=== PATIENT | female | born 1965 | race American Indian/Alaskan Native ===

== ENCOUNTER 2022-07-01 12:45 | Emergency (ER) | payer MEDICARE, MEDICAID ==
[2022-07-01 13:18] VITALS: PULSE 90
[2022-07-01] MEDS ORDERED: Sodium Chloride 0.9% 10 ML Syringe FLUSH PRN (13:23)
[2022-07-01] MEDS ORDERED: cefTRIAXone 2 GM in Sodium Chloride 0.9% 50 ML IV ONE (13:24)
[2022-07-01 13:38] LABS: BASOPHILS ABSOLUTE AUTO 0.05 K/uL (0.00-0.10); BASOPHILS PERCENT AUTO 0.4 % (0.1-1.3); EOSINOPHILS ABSOLUTE AUTO 0.36 K/uL (0.00-0.40); EOSINOPHILS PERCENT AUTO 2.9 % (0.0-5.4); HEMATOCRIT 31.2 % (34.3-46.0); HEMOGLOBIN 10.4 g/dL (11.2-15.5); IMMATURE GRAN ABSOLUTE AUTO 0.04 K/uL (0.00-0.23); IMMATURE GRAN PERCENT AUTO 0.3 % (0.0-0.7); LYMPHOCYTES ABSOLUTE AUTO 2.27 K/uL (0.8-3.3); LYMPHOCYTES PERCENT AUTO 18.1 % (11.4-47.7); MEAN CORPUSCULAR HEMOGLOBIN 28.1 pg (31.6-35.5); MEAN CORPUSCULAR HGB CONC 33.3 g/dL (31.6-35.5); MEAN CORPUSCULAR VOLUME 84.3 fL (81.4-99.0); MONOCYTES ABSOLUTE AUTO 0.76 K/uL (0.20-0.90); NEUTROPHILS ABSOLUTE AUTO 9.09 K/uL (1.0-7.6); NEUTROPHILS PERCENT AUTO 72.3 % (40.0-78.1); PLATELET COUNT,PLT 268 K/uL (130-375); WHITE BLOOD CELL COUNT,WBC 12.6 K/uL (3.2-11.0)
[2022-07-01 13:58] LABS: A/G RATIO 0.6 (1.2-2.2); ALANINE AMINOTRANSFERASE,ALT 121 U/L (12-78); ALBUMIN 3.3 g/dL (3.4-5.0); ALKALINE PHOSPHATASE 91 U/L (46-116); ASPARTATE AMNIOTRANSFERASE,AST 115 U/L (15-37); BILIRUBIN TOTAL 0.4 mg/dL (0.2-1.0); BLOOD UREA NITROGEN,BUN 41 mg/dL (7-18); CALCIUM 8.8 mg/dL (8.5-10.1); CARBON DIOXIDE,CO2 26 mmol/L (21-32); CHLORIDE,CL 96 mmol/L (100-108); CREATININE 1.1 mg/dL (0.6-1.0); EST CRCL DRUG DOSING (CG) 50.16 mL/min; ESTIMATED GFR 58 mL/min (>60); POTASSIUM,K 3.7 mmol/L (3.6-5.2); PROTEIN TOTAL,TP 8.7 g/dL (6.4-8.2); SODIUM,NA 131 mmol/L (140-148)
[2022-07-01] MEDS ORDERED: Acetaminophen/Codeine 300-30 MG Tab PO ONE (14:00)
[2022-07-01 14:03] LABS: ANION GAP 12.7 mmol/L (5.0-14.0)
[2022-07-01 14:05] LABS: GLUCOSE RANDOM 418 mg/dL (74-106)
[2022-07-01] MEDS ORDERED: Insulin Regular, Human 100 Units/ML 3 ML Vial SUBCUT ONE (14:23)
[2022-07-01] MEDS ORDERED: 50% Dextrose in Water 50 ML Syringe IVPUSH PRN (14:23)
[2022-07-01] MEDS ORDERED: Glucagon,Human Recombinant 1 MG Vial IM PRN (14:23)
[2022-07-01 14:29] LABS: LACTIC ACID 1.8 mmol/L (0.4-2.0)
[2022-07-01] MEDS ORDERED: Bacitracin Oint 1 GM U/D Packet TOP ONE (14:43)
[2022-07-01 14:52] VITALS: BP 106/84
[2022-07-01 15:17] LABS: APPEARANCE,URINE SLIGHTLY CLOUDY (CLEAR); BILIRUBIN,URINE NEGATIVE (NEGATIVE); COLOR,URINE YELLOW (YELLOW); GLUCOSE,URINE 500 mg/dL (NEGATIVE); KETONES,URINE NEGATIVE (NEGATIVE); LEUKOCYTE ESTERASE,URINE NEGATIVE (NEGATIVE); NITRITE,URINE NEGATIVE (NEGATIVE); OCCULT BLOOD,URINE TRACE-INTACT (NEGATIVE); PROTEIN,URINE 30 mg/dL (NEGATIVE); UROBILINOGEN,URINE 0.2 EU/dL (0.2-1.0)
[2022-07-01] MEDS ORDERED: Calcium Carbonate 500 MG Tab.Chew PO ONE (15:29)
[2022-07-01 16:46] LABS: AMORPHOUS SEDIMENT,URINE NOT SEEN; BACTERIA,URINE MANY; EPITHELIAL CELLS,URINE FEW; MUCUS,URINE FEW; WBC,URINE 0-5 (0-5)
== END 2022-07-01 16:00 | disposition home or self-care (01) ==
LOC: JP.ED 12:45
DX: S90.411A Abrasion, right great toe, initial encounter (principal); S60.312A Abrasion of left thumb, initial encounter; L08.9 Local infection of the skin and subcutaneous tissue, unspecified; E11.65 Type 2 diabetes mellitus with hyperglycemia; Z88.0 Allergy status to penicillin; Z88.5 Allergy status to narcotic agent; Z88.1 Allergy status to other antibiotic agents; Z79.4 Long term (current) use of insulin; Z91.199 Patient's noncompliance with other medical treatment and regimen due to unspecified reason; W22.09XA Striking against other stationary object, initial encounter
CPT/HCPCS: 36415; 73140; 73630; 80053; 81001; 82947; 83605; 85025; 96365; 99283; J0696; J1815; J3490

== ENCOUNTER 2022-08-28 22:18 | Emergency (ER) | payer MEDICARE, MEDICAID ==
[2022-08-29 00:22] VITALS: BP 134/85; PULSE 86
[2022-08-29 01:05] LABS: BASOPHILS ABSOLUTE AUTO 0.06 K/uL (0.00-0.10); BASOPHILS PERCENT AUTO 0.7 % (0.1-1.3); EOSINOPHILS ABSOLUTE AUTO 0.37 K/uL (0.00-0.40); EOSINOPHILS PERCENT AUTO 4.1 % (0.0-5.4); HEMATOCRIT 29.9 % (34.3-46.0); IMMATURE GRAN ABSOLUTE AUTO 0.03 K/uL (0.00-0.23); IMMATURE GRAN PERCENT AUTO 0.3 % (0.0-0.7); LYMPHOCYTES ABSOLUTE AUTO 3.73 K/uL (0.8-3.3); LYMPHOCYTES PERCENT AUTO 41.2 % (11.4-47.7); MEAN CORPUSCULAR HEMOGLOBIN 27.8 pg (31.6-35.5); MEAN CORPUSCULAR HGB CONC 33.4 g/dL (31.6-35.5); MEAN CORPUSCULAR VOLUME 83.1 fL (81.4-99.0); MONOCYTES ABSOLUTE AUTO 0.44 K/uL (0.20-0.90); MONOCYTES PERCENT AUTO 4.9 % (3.3-12.6); NEUTROPHILS ABSOLUTE AUTO 4.43 K/uL (1.0-7.6); NEUTROPHILS PERCENT AUTO 48.8 % (40.0-78.1); PLATELET COUNT,PLT 359 K/uL (130-375); WHITE BLOOD CELL COUNT,WBC 9.1 K/uL (3.2-11.0)
[2022-08-29] MEDS ORDERED: Cephalexin 250 MG Cap PO ONE (02:02)
== END 2022-08-29 02:21 | disposition home or self-care (01) ==
LOC: JP.ED 22:18
DX: L03.032 Cellulitis of left toe (principal); E11.9 Type 2 diabetes mellitus without complications; K21.9 Gastro-esophageal reflux disease without esophagitis; Z72.0 Tobacco use; Z88.0 Allergy status to penicillin; Z88.1 Allergy status to other antibiotic agents; Z88.5 Allergy status to narcotic agent; Z88.8 Allergy status to other drugs, medicaments and biological substances; Z79.899 Other long term (current) drug therapy
CPT/HCPCS: 36415; 73660; 85025; 86140; 99283; A9270